=== PATIENT | female | born 1965 | race Caucasian/White ===

== ENCOUNTER 2018-06-12 07:47 | Day surgery (SDC) | payer OTHER ==
[~2018-06-12 07:47] MED LIST: CATAFLAN PO
[2018-06-12] MEDS ORDERED: DUI500 PO (11:15)
[2018-06-12] MEDS ORDERED: TRAM1TAB98 PO (11:15)
== END 2018-06-12 15:45 | disposition home or self-care (01) ==
LOC: CIR.AMB 07:47
DX: M23.321 Other meniscus derangements, posterior horn of medial meniscus, right knee (principal); M23.352 Other meniscus derangements, posterior horn of lateral meniscus, left knee; M65.862 Other synovitis and tenosynovitis, left lower leg; M17.12 Unilateral primary osteoarthritis, left knee